=== PATIENT | male | born 1940 | race African-American/Black ===

== ENCOUNTER 2020-11-21 17:42 | Emergency (ER) | payer MEDICARE, OTHER ==
[~2020-11-21] VITALS: Ht 175.3 cm; Wt 94.0 kg
[2020-11-21] MEDS ORDERED: PANT40TA51 PO (17:56)
[2020-11-21] MEDS ORDERED: ATOR40TA70 PO (17:56)
[2020-11-21] MEDS ORDERED: ASPI-864 PO (17:56)
[2020-11-21] MEDS ORDERED: BENA40TA9 PO (17:56)
[2020-11-21] MEDS ORDERED: HYDR-4134 PO (17:56)
[2020-11-21] MEDS ORDERED: TAMS-11 PO (17:56)
[2020-11-21] MEDS ORDERED: AMIO100T4 PO (17:56)
[2020-11-21] MEDS ORDERED: GABA300S PO (17:56)
[2020-11-21 19:09] LABS: BASOPHILS % 0.2 % (0.0-2.0); CHLORIDE 111 mEq/L (98-107); EOSINOPHILS % 0.8 % (0.0-5.0); HEMATOCRIT. 41.2 % (42.0-52.0); HEMOGLOBIN. 13.2 g/dL (14.0-18.0); LYMPHOCYTES % 22.2 % (20.0-50.0); MEAN CORPUSCULAR HEMOGLOBIN 30.6 pg (28.0-32.0); MEAN CORPUSCULAR VOLUME 95.5 fL (80.0-94.0); MONOCYTES % 9.5 % (2.0-8.0); NEUTROPHILS % 67.3 % (40.0-76.0); PLATELET 246 x1000/uL (130-400); RED BLOOD CELL COUNT 4.32 mill/uL (4.7-6.1); RED CELL DISTRIBUTION WIDTH 17.3 % (11.6-14.6)
[2020-11-21 19:37] VITALS: BP 186/78
== END 2020-11-21 19:50 | disposition home or self-care (01) ==
LOC: ER 17:42
DX: I10 Essential (primary) hypertension (principal); Z85.028 Personal history of other malignant neoplasm of stomach; Z98.890 Other specified postprocedural states; Z88.0 Allergy status to penicillin; Z79.82 Long term (current) use of aspirin
CPT/HCPCS: 36415; 71045; 80053; 84484; 85025; 93005; 99285

== ENCOUNTER 2021-06-19 08:27 | Emergency (ER) | payer OTHER, MEDICAID ==
[~2021-06-19] VITALS: Ht 175.3 cm; Wt 82.0 kg
[~2021-06-19 08:27] MED LIST: AMIO100T4 PO; ASPI-864 PO; ATOR40TA70 PO; BENA40TA9 PO; GABA300S PO; HYDR-4134 PO; PANT40TA51 PO; TAMS-11 PO
[2021-06-19 09:17] LABS: BASOPHILS % 0.4 % (0.0-2.0); EOSINOPHILS % 0.5 % (0.0-5.0); HEMATOCRIT. 43.7 % (42.0-52.0); LYMPHOCYTES % 23.5 % (20.0-50.0); MEAN CORPUSCULAR HEMOGLOBIN 30.9 pg (28.0-32.0); MEAN CORPUSCULAR VOLUME 96.5 fL (80.0-94.0); MEAN PLATELET VOLUME 8.3 fl (7.4-10.4); MONOCYTES % 8.6 % (2.0-8.0); PLATELET 196 x1000/uL (130-400); RED BLOOD CELL COUNT 4.53 mill/uL (4.7-6.1); RED CELL DISTRIBUTION WIDTH 17.8 % (11.6-14.6)
[2021-06-19 09:25] LABS: CHLORIDE 112 mEq/L (98-107)
[2021-06-19 09:28] LABS: CLARITY URINE CLEAR (CLEAR); COLOR URINE YELLOW (YELLOW); KETONES URINE NEGATIVE (NEGATIVE); LEUKOCYTE ESTERASE URINE NEGATIVE (NEGATIVE); NITRITE URINE NEGATIVE (NEGATIVE); OCCULT BLOOD URINE NEGATIVE (NEGATIVE); PH URINE 5.5 (4.5-8.0); PROTEIN URINE TRACE (NEGATIVE); SPECIFIC GRAVITY URINE 1.018 (1.005-1.030); UROBILINOGEN URINE 0.2 E.U./dL (0.2-1.0)
[2021-06-19] MEDS ORDERED: OXYB5TAB16 MT (10:11)
[2021-06-19 10:24] VITALS: BP 167/74
== END 2021-06-19 10:26 | disposition home or self-care (01) ==
LOC: ER 08:27
DX: N31.8 Other neuromuscular dysfunction of bladder (principal); Z88.0 Allergy status to penicillin; I10 Essential (primary) hypertension; Z79.82 Long term (current) use of aspirin; Z98.890 Other specified postprocedural states; Z85.028 Personal history of other malignant neoplasm of stomach
CPT/HCPCS: 36415; 80053; 81003; 85025; 99283

== ENCOUNTER 2021-08-02 04:24 | Emergency (ER) | payer OTHER, MEDICAID ==
[~2021-08-02] VITALS: Ht 175.3 cm; Wt 80.0 kg
[~2021-08-02 04:24] MED LIST changes: +OXYB5TAB16 MT
[2021-08-02] MEDS ORDERED: MORPHINE SULFATE 4 MG/ML CPJ (NOT FOR IM USE) IV STA (05:44)
[2021-08-02] MEDS ORDERED: ONDANSETRON HCL 4MG/2ML INJ IV STA (05:44)
[2021-08-02 06:34] LABS: BASOPHILS % 0.3 % (0.0-2.0); EOSINOPHILS % 0.6 % (0.0-5.0); HEMATOCRIT. 44.2 % (42.0-52.0); HEMOGLOBIN. 14.9 g/dL (14.0-18.0); LYMPHOCYTES % 17.4 % (20.0-50.0); MEAN CORPUSCULAR HEMOGLOBIN 32.1 pg (28.0-32.0); MEAN CORPUSCULAR VOLUME 94.9 fL (80.0-94.0); MEAN PLATELET VOLUME 7.6 fl (7.4-10.4); MONOCYTES % 10.2 % (2.0-8.0); NEUTROPHILS % 71.5 % (40.0-76.0); PLATELET 229 x1000/uL (130-400); RED BLOOD CELL COUNT 4.65 mill/uL (4.7-6.1); RED CELL DISTRIBUTION WIDTH 17.9 % (11.6-14.6)
[2021-08-02 06:36] LABS: CHLORIDE 105 mEq/L (98-107)
[2021-08-02 06:48] LABS: PROTHROMBIN TIME 10.6 sec (9.6-11.0)
[2021-08-02 08:40] LABS: CLARITY URINE CLEAR (CLEAR); COLOR URINE YELLOW (YELLOW); KETONES URINE NEGATIVE (NEGATIVE); LEUKOCYTE ESTERASE URINE NEGATIVE (NEGATIVE); NITRITE URINE NEGATIVE (NEGATIVE); OCCULT BLOOD URINE NEGATIVE (NEGATIVE); PH URINE 7.5 (4.5-8.0); PROTEIN URINE NEGATIVE (NEGATIVE); SPECIFIC GRAVITY URINE 1.018 (1.005-1.030); UROBILINOGEN URINE 0.2 E.U./dL (0.2-1.0)
[2021-08-02] MEDS ORDERED: SENN8.6T21 MT (08:55)
[2021-08-02] MEDS ORDERED: DOCU-138 MT (08:55)
[2021-08-02] MEDS ORDERED: MINERAL OIL ENEMA 133ML PR ONE (09:00)
[2021-08-02 12:00] VITALS: BP 160/80
== END 2021-08-02 12:15 | disposition home or self-care (01) ==
LOC: ER 05:31
DX: K57.90 Diverticulosis of intestine, part unspecified, without perforation or abscess without bleeding (principal); E78.00 Pure hypercholesterolemia, unspecified; I10 Essential (primary) hypertension; Z88.0 Allergy status to penicillin; Z79.899 Other long term (current) drug therapy; Z98.890 Other specified postprocedural states
CPT/HCPCS: 36415; 71045; 74176; 80053; 81003; 83605; 83880; 84484; 85025; 86850; 86870; 86900; 93005; 99285